=== PATIENT | female | born 1990 | race Caucasian/White ===

== ENCOUNTER 2024-01-03 09:08 | Outpatient (CLI) | payer BC, SELFPAY | END 2024-01-03 09:09 | disposition home or self-care (01) | PROVIDERS: Visit Provider Physician Assistant | DX: R63.5 Abnormal weight gain (principal); Z13.220 Encounter for screening for lipoid disorders | CPT/HCPCS: 80061; 82947; 84443 ==

== ENCOUNTER 2024-08-02 11:59 | Outpatient (CLI) | payer BC, SELFPAY ==
--- OUTSIDE RECORDS SUMMARY | 2024-08-02 12:02 | XMS_ITS | Clinical Summary ---
Author Organization [facility] Address [place], [place] [address] Care Team Providers Care Bail Agent Name Role Phone Jona Holcomb Primary Care Provider Unavailabl e Allergies Active Allergy Reactions Criticality Noted Date Comments Guaifenesin Stomach Upset Low 07/28/2019 And sore inside mouth Medications Medication Sig Dispensed Refills Start Date End Date Status sertraline (ZOLOFT) 50 mg tablet Take 50 mg by mouth once daily. 11/26/2022 Active Active Problems No known active problems Family History Medical History Relation Name Comments Good Health Father Good Health Mother Relation Name Status Comments Father Alive Mother Alive Social History Tobacco Use Types Packs/Day Years Used Date Smoking Tobacco: Former Cigarettes Smokeless Tobacco: Never Tobacco Cessation:Counseling Given: Not Answered Alcohol Use Standard Drinks/Week Comments Not Currently 0 (1 standard drink = 0.6 oz pur e alcohol) PHQ-2 Answer Date Recorded PHQ-2 Score 0 07/28/2019 Social Connections Answer Date Recorded Frequency of Communication with Friends and Fami ly Not on file 02/03/2023 Sex and Gender Information Value Date Recorded Sex Assigned at Not on file Gender Identity Not on file Sexual Orientation Not on file Obstetrics History Last Filed Vital Signs Vital Sign Reading Time Taken Comments Blood Pressure 124/60 02/03/2023 11:53 AM CDT Pulse 88 02/03/2023 11:53 AM CDT Temperature 36.8 ??C (98.2 ??F) 02/03/2023 11:53 AM C DT Respiratory Rate - - Oxygen Saturation 96% 02/03/2023 11:53 AM CDT Inhaled Oxygen Concentration - - Weight 88.5 kg (195 lb 3.2 oz) 02/03/2023 11:53 AM CDT Height 152.4 cm (5') 07/28/2019 9:11 AM CDT Body Mass Index 38.12 07/28/2019 9:11 AM CDT Plan of Treatment Health Maintenance Due Date Last Done Comments Tdap 2002 HIV for age 15-65 2006 Hepatitis C screening for age 18-79 2009 Tetanus booster 2011 BMI (ht and wt on same day) for age 18+ 07/28/2020 07/28/2019 Depression screening for age 12+ 07/30/2020 07/30/2019, 07/29/2019, 07/28/2019, Additional history exists COVID-19 vaccine series ( season) 2024 Influenza for age 9-49 2024 Pap test for age 21-65 01/02/2027 , 01/03/2024, 02/17/2021, Additional history exists Pneumococcal series for age 6-64 Aged Out No longer eligible based on patient's age to complete this topic Procedures Procedure Name Priority Date/Time Associated Diagnosis Comments HPV HIGH RISK Routine 01/03/2024 9:15 AM CDT from Last 3 Months or Most Recently Relevant to Health Maintenance Results * HPV HIGH RISK (01/03/2024 9:15 AM CDT) TYPE 16 Negative Negative 01/07/2024 1:56 PM CDT [facility] TYPE 18 Negative Negative 01/07/2024 1:56 PM CDT [facility] OTHER HIGH RISK TYPES Negative Negative 01/07/2024 1:56 PM CDT [facility] Other (Cervical) 01/03/2024 9:15 AM CDT 01/03/2024 5:03 PM CDT Narrative [facility] - 01/07/2024 1:56 PM CDT HPV types 16, 18, 31, 33, 35, 39, 45, 51, 52, 56, 58, 59, 66 and 68 DNA were undetectable or below the pre-set threshold. Methodology: Wayne Moriah 4800 HPV Test December L Aliyah [facility] [address] [place] [address], from Last 3 Months or Most Recently Relevant to Health Maintenance Care Teams Bail Agent Relationship Specialty Start Date End Date Jona Holcomb PCP - General 11/21/06
== END 2024-08-02 12:00 | disposition home or self-care (01) ==
PROVIDERS: Visit Provider Nurse Practitioner Family
DX: Z77.21 Contact with and (suspected) exposure to potentially hazardous body fluids (principal)
CPT/HCPCS: 86703; 86705; 86706; 86803; 87340

== ENCOUNTER 2025-02-12 09:14 | Outpatient (CLI) | payer OTHER, SELFPAY | END 2025-02-12 09:15 | disposition home or self-care (01) | PROVIDERS: Visit Provider Physician Assistant | DX: Z77.21 Contact with and (suspected) exposure to potentially hazardous body fluids (principal); Z11.4 Encounter for screening for human immunodeficiency virus [HIV]; Z11.59 Encounter for screening for other viral diseases | CPT/HCPCS: 86703; 86706; 86803; 87340 ==